=== PATIENT | female | born 1995 | race Caucasian/White ===

== ENCOUNTER 2024-03-12 11:25 | Outpatient (RCR) | payer BC, SELFPAY | END 2024-03-12 23:59 | disposition home or self-care (01) | LOC: RPT 11:25 | PROVIDERS: ATTENDING PHYSICIAN Family Medicine | DX: I89.0 Lymphedema, not elsewhere classified (principal); G81.94 Hemiplegia, unspecified affecting left nondominant side; F84.0 Autistic disorder; Z73.6 Limitation of activities due to disability | CPT/HCPCS: 97163; 97535 ==